=== PATIENT | female | born 1960 | race Caucasian/White ===

== ENCOUNTER → 2017-02-20 | Outpatient (CLI) | payer BC ==
[~2017-02-20] MED LIST: PRILOSEC 20MG20 MG PO; VIACTIV PO; VITAMIN B-100 MG/TAB PO; VITAMIN C BUFF500 MG PO
== END ==
LOC: MC.RAD 07:44
DX: Z12.31 Encounter for screening mammogram for malignant neoplasm of breast (principal)

== ENCOUNTER → 2018-03-12 | Outpatient (CLI) | payer BC | LOC: MC.RAD 07:51 | DX: Z12.31 Encounter for screening mammogram for malignant neoplasm of breast (principal) ==

== ENCOUNTER → 2018-06-04 | Outpatient (REF) ==
[2018-06-04 16:01] LABS: IRON,SERUM 90 ug/dL (35-150)
[2018-06-04 16:10] LABS: TOTAL IRON BINDING CAPACITY 336 ug/dL (265-497)
[2018-06-04 16:39] LABS: FERRITIN 75 ng/mL (11-264)
== END ==
LOC: ZLAB.WCH 15:50
PROVIDERS: Physician Assistant
DX: Z01.89 Encounter for other specified special examinations (principal)

== ENCOUNTER → 2019-01-13 | Outpatient (CLI) | payer BC | LOC: COL.RAD 11:03 | DX: E04.2 Nontoxic multinodular goiter (principal) ==

== ENCOUNTER → 2019-04-27 | Outpatient (CLI) | payer BC | LOC: MC.RAD 09:26 | DX: Z12.31 Encounter for screening mammogram for malignant neoplasm of breast (principal) ==

== ENCOUNTER → 2020-05-03 | Outpatient (CLI) | payer OTHER | LOC: MC.RAD 09:45 | DX: Z12.31 Encounter for screening mammogram for malignant neoplasm of breast (principal) ==

== ENCOUNTER → 2021-06-05 | Outpatient (CLI) | payer OTHER | LOC: MC.RAD 10:45 | DX: Z12.31 Encounter for screening mammogram for malignant neoplasm of breast (principal) ==

== ENCOUNTER → 2021-07-07 | Outpatient (CLI) | payer OTHER | LOC: COL.RAD 05-02 08:30 | DX: Z12.2 Encounter for screening for malignant neoplasm of respiratory organs (principal) ==

== ENCOUNTER → 2022-04-11 | Outpatient (CLI) | payer OTHER | LOC: COL.RAD 04-03 12:45 | DX: E04.2 Nontoxic multinodular goiter (principal) ==